=== PATIENT | female | born 1930 | race Caucasian/White ===

== ENCOUNTER 2016-11-05 15:54 | Inpatient (IN) | payer OTHER, MEDICARE ==
[~2016-11-05] VITALS: Ht 165.1 cm; Wt 75.8 kg
[2016-11-05] VITALS (13 sets, daily range): BP systolic 80–165; BP diastolic 56–75; PULSE 80–92; RESP 10–19; TEMP 98.3–98.6; O2SAT 95–100
[~2016-11-05 15:54] MED LIST: ASPI1TAB69 PO; LISI-360 PO; LISI10TA3 PO; OMEP20TA PO
[2016-11-05] MEDS ORDERED: PROPOFOL 1000 MG/100 ML INJ 100 ML ONE (16:11)
[2016-11-05] MEDS ORDERED: ETOMIDATE 20 MG/10 ML VIAL ONE (16:11)
[2016-11-05] MEDS ORDERED: SUCCINYLCHOLINE CHLORIDE 200 MG/10 ML VIAL ONE (16:11)
[2016-11-05] MEDS ORDERED: LIDOCAINE HCL 2% 100 MG/5 ML SYRINGE ONE (16:17)
[2016-11-05] MEDS ORDERED: LIDOCAINE HCL 2% 100 MG/5 ML SYRINGE IVP ONE (16:30)
[2016-11-05] MEDS ORDERED: SODIUM CHLOR 0.9% 1000 ML INJ 1,000 ML IV ONE (16:30)
[2016-11-05] MEDS ORDERED: SODIUM CHLORIDE 0.9% FLUSH 10 ML FLUSH IVF PRN (16:30)
[2016-11-05] MEDS ORDERED: ETOMIDATE 20 MG/10 ML VIAL IVP ONE (16:30)
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
[2016-11-05] MEDS ORDERED: PROPOFOL 1000 MG/100 ML INJ 100 ML IV SCH ×2 (16:45→19:30)
[2016-11-05 16:52] LABS: BASOPHIL % 0.4 % (0.0-2.0); EOSINOPHIL % 0.4 % (0.0-4.0); HEMATOCRIT 34.4 % (35.0-46.0); HEMO FLAGS DIFF FINAL; LYMPH % 10.3 % (9.0-44.0); LYMPHOCYTE # 1.1 TH/MM3 (1.0-4.8); MEAN CORPUSCULAR HEMOGLOBIN 30.8 PG (27.0-34.0); MEAN CORPUSCULAR HGB CONC 33.9 % (32.0-36.0); MONO % 6.7 % (0.0-8.0); NEUT % 82.2 % (16.0-70.0); PLATELET COUNT 372 TH/MM3 (150-450); RED BLOOD COUNT 3.78 MIL/MM3 (4.00-5.30); WHITE BLOOD COUNT 10.9 TH/MM3 (4.0-11.0)
[2016-11-05 16:59] LABS: BACTERIA, URINE MANY /hpf; BLOOD, URINE SMALL (NEG); COMMENT (UR) CATH-CULTURE IND; CULTURE IF INDICATED CATH CULTURE IND; GLUCOSE,URINE NEG (NEG); HYALINE CAST, URINE 2 /lpf (RARE); KETONE, URINE NEG (NEG); MUCUS URINE FEW /lpf (OCC); SQUAMOUS EPITHELIAL CELL URINE 2 /hpf (0-5); URINE COLOR LIGHT-YELLOW (YELLW/STRAW)
--- NOTE | 2016-11-05 16:59 | RADRPT ---
EXAM DATE/TIME: 11/05/2016 16:16 [facility] COMPARISON: CHEST SINGLE AP, February 18, 2016, 20:14. INDICATIONS : Post intubation. MEDICAL HISTORY : None. SURGICAL HISTORY : None. ENCOUNTER: Initial ACUITY: 1 day PAIN SCORE: 0/10 LOCATION: Bilateral chest FINDINGS: An endotracheal tube has its tip 2 cm above the doc. A nasogastric tube has its tip in the stomac h. The heart and mediastinal structures are normal. The pulmonary vascular pattern is normal. The lungs are clear. CONCLUSION: 1. No acute cardiopulmonary disease. 2. Endotracheal tube 2 cm above the doc. 3. Degenerative changes and scoliosis of the thoracolumbar spine. Madi Bui MD on November 05, 2016 at 16:43 Board Certified Radiologist. This report was verified electronically.
[2016-11-05 17:00] LABS: NITRITE,URINE POS (NEG)
[2016-11-05 17:02] LABS: APTT (PATIENT) 29.4 SEC (24.3-30.1); PROTHROMBIN TIME - PATIENT 11.1 SEC (9.8-11.6)
[2016-11-05 17:10] LABS: ANION GAP 10 MEQ/L (5-15); BICARBONATE 23.7 MEQ/L (21.0-32.0); BLOOD UREA NITROGEN 18 MG/DL (7-18); CHLORIDE 94 MEQ/L (98-107); GLOMERULAR FILTRATION RATE 81 ML/MIN (>89); POTASSIUM 4.6 MEQ/L (3.5-5.1); SODIUM (NA) 128 MEQ/L (136-145)
[2016-11-05 17:13] LABS: AMPHETAMINE, URINE NEG (NEG); BARBITURATES, URINE NEG (NEG); COCAINE, URINE NEG (NEG)
--- NOTE | 2016-11-05 17:18 | RADRPT ---
EXAM DATE/TIME: 11/05/2016 16:59 [facility] COMPARISON: CT BRAIN W/O CONTRAST, February 18, 2016, 21:05. INDICATIONS : Altered mental status. RADIATION DOSE: 34.41 CTDIvol (mGy) MEDICAL HISTORY : Cardiovascular disease. Hypertension. Gastroesophageal reflux disease. SURGICAL HISTORY : None. ENCOUNTER: Initial ACUITY: 1 day PAIN SCALE: Non-responsive LOCATION: cranial TECHNIQUE: Multiple contiguous axial images were obtained of the head. Using automated exposure control and adj ustment of the mA and/or kV according to patient size, radiation dose was kept as low as reasonably a chievable to obtain optimal diagnostic quality images. DICOM format image data is available electro nically for review and comparison. FINDINGS: The study is abnormal demonstrating a large hematoma occupying most of the left supratentorial brain, measuring in excess of 10.5 cm in AP dimension and causing greater than 2 cm midline shift towards t he right. There is surrounding hypodensity about the hematoma sparing a the temporal lobes and lobe convexity parietal-occipital region. Possible subarachnoid hemorrhage in the high convexity. There is loss of delineation of the perimesencephalic cisterns. The aqueduct of Sylvius and the calcified pineal appears deviated towards the right. CSF is still seen in the supracerebellar cistern. No focal abnormality seen in the right cerebral hemisphere. No intraventricular blood. The posterio r fossa structures are grossly intact. Wide windows for bony detail demonstrates calvarium to be int act. CONCLUSION: Large, greater than 10 cm, hemorrhage involving left frontal, parietal, and occipital lobes causing g reater than 2 cm midline shift towards the right and some mass effect in the mesencephalon, but no ov ert transtentorial herniation. The findings were called to Dr. Lobo. Mike Iqbal MD on November 05, 2016 at 17:09 Board Certified Radiologist. This report was verified electronically.
[2016-11-05 17:24] LABS: BLOOD GAS BASE EXCESS -4.1 mmol/L (-2-2); BLOOD GAS CARBOXYHEMOGLOBIN 0.7 % (0-4); BLOOD GAS HCO3 20 mmol/L (22-26); BLOOD GAS METHEMOGLOBIN 0.9 % (0-2); BLOOD GAS O2 HGB SATURATION 98 % (90-100); BLOOD GAS OXYGEN CONTENT 15.2 Vol % (12.0-20.0); BLOOD GAS PCO2 36 mmHg (38-42); BLOOD GAS PO2 273 mmHG (61-120); BLOOD GAS TOTAL HGB 10.6 G/DL (12.0-16.0); CRITICAL VALUE NO; DRAW SITE LT RADIAL; FIO2 50 %; NUMBER OF ARTERIAL PUNCTURES 1; OXYGEN DEVICE VENTILATOR; TEMP CORR TO 98.6; VENT SETTINGS AC14/500/5PEEP
[2016-11-05 17:25] LABS: STAT YES; ULNAR PULSE Y
--- NOTE | 2016-11-05 17:55 | MB ---
cc: SINDY CHOI M.D. DATE OF CONSULTATION: 11/05/2016. REQUESTING PHYSICIAN: Dr. Cabello. HISTORY OF PRESENT ILLNESS: This is an 86-year-old woman who was found unresponsive at her home, last being seen in her normal state of health eight hours previously. The patient was brought to [facility] and intubated here without the need of sedation or paralysis. CT scan of the brain performed emergently shows a massive left hemisphere intracerebral hemorrhage measuring over 10 cm in greatest length causing over 2 cm of [id number] midline shift. According to history from the family, the patient is not on any anticoagulation. PAST MEDICAL HISTORY: 1. Arthritis. 2. Gastroesophageal reflux disease (GERD). 3. Hypertension. 4. Hiatal hernia. CURRENT HOME MEDICATIONS: 1. Omeprazole. 2. Lisinopril. 3. Baby aspirin. ALLERGIES: SHE IS NOT ALLERGIC TO ANY MEDICATIONS. SOCIAL HISTORY: No alcohol use. No tobacco use. REVIEW OF SYSTEMS: A review of systems is unobtainable as the patient is unresponsive. PHYSICAL EXAMINATION: GENERAL: A well-developed, well-nourished elderly female who is intubated but not on any sedation. HEAD: Her head is atraumatic and normocephalic. Pupils are 2 to 3 mm nonreactive, midline gaze. NEUROLOGICAL EXAMINATION: The patient responds with posturing in the upper extremities to painful stimulation. Triple flexion in the lower extremities. She has negative corneal and dolls sign. She does have positive cough reflex to endotracheal suctioning. ASSESSMENT: Massive left hemisphere intracerebral hemorrhage with 2 cm [id number] midline shift. Elsy Coma Score is 3. Prognosis for useful recovery is essentially zero. RECOMMENDATIONS: Spoke with the patient's family members regarding the dire prognosis and have recommended no aggressive or heroic measures in this case. They understand the reasoning and are in agreement with comfort measures only. The patient will be admitted to the intensive care unit for comfort measures and if and when family requests, life support may be discontinued. MD LOW Breaux/LETI /5:37 PM /5:44 PM
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
[2016-11-05] MEDS ORDERED: RESP: ALBUTEROL 2.5 MG/IPRATROPIUM 0.5 MG NEB (PRN) INH (19:30)
[2016-11-05] MEDS ORDERED: MORPHINE SULFATE 4 MG/ML INJ IV PRN (19:30)
[2016-11-05] MEDS ORDERED: SODIUM CHLORIDE 0.9% FLUSH 10 ML FLUSH PRN (19:30)
[2016-11-05] MEDS ORDERED: MISCELLANEOUS NURSING INFORMATION XX SCH (19:30)
[2016-11-05] MEDS ORDERED: LORazepam 2 MG/ML VIAL IV PRN (19:30)
[2016-11-05] MEDS ORDERED: CHLORHEXIDINE GLUCONATE 2 % 1 PACK (2 CLOTHS) TOP PRN (19:30)
[2016-11-05] MEDS: SODIUM CHLORIDE 0.9% FLUSH 10 ML FLUSH SCH (20:39)
[2016-11-05] MEDS: SODIUM CHLOR 0.9% 1000 ML INJ 1,000 ML IV SCH (20:39)
[2016-11-05] MEDS ORDERED: hydrALAZINE HCL 20 MG/ML VIAL IV PUSH PRN (20:45)
[2016-11-05] MEDS ORDERED: NOREPINEPHRINE-DEXTROSE DRIP 250 ML IV ONE (21:12)
[2016-11-05] MEDS ORDERED: TERBUTALINE INJ 1 MG/ML AMP SQ PRN (21:30)
[2016-11-05] MEDS ORDERED: NOREPINEPHRINE-DEXTROSE DRIP 250 ML IV SCH (21:30)
--- NOTE | 2016-11-05 21:57 | RADRPT ---
EXAM DATE/TIME: 11/05/2016 21:43 [facility] COMPARISON: CHEST SINGLE AP, November 05, 2016, 16:16. INDICATIONS : Evaluate central line placement MEDICAL HISTORY : None. SURGICAL HISTORY : None. ENCOUNTER: Subsequent ACUITY: 1 day PAIN SCORE: Non-responsive. LOCATION: chest FINDINGS: Interval placement of right subclavian catheter with tip projecting at the cavoatrial junction. No e vidence of pneumothorax. Endotracheal tube tip is 2.3 cm above the doc. Gastric tube tip project s within the stomach. The lungs are symmetrically aerated. The heart is normal size. Both hemidiap hragms are well delineated. CONCLUSION: Right subclavian catheter in good position. No evidence of pneumothorax. Mike Iqbal MD on November 05, 2016 at 21:55 Board Certified Radiologist. This report was verified electronically.
[2016-11-05] MEDS: PANTOPRAZOLE SODIUM 40 MG VIAL IV PUSH SCH (22:05)
[2016-11-05] MEDS ORDERED: NOREPINEPHRINE INJ 4 MG in SODIUM CHLOR 0.9% 250 ML INJ 250 ML IV SCH (22:15)
--- NOTE | 2016-11-05 23:02 | PD.PROCEDR ---
Procedure Note Procedure Centerline placement A time-out was completed verifying correct patient, procedure, site, positioning , and special equipment if applicable. The patient was placed in a dependent position appropriate for central line placement based on the vein to be cannulated. The patients right shoulder was prepped and draped in sterile fashion. 1% Lidocaine was used to anesthetize the surrounding skin area. A triple lumen 9-Dutch Cordis catheter was introduced into the the right subclavian vein using the Seldinger technique. The catheter was threaded smoothly over the guide wire and appropriate blood return was obtained. Each lumen of the catheter was evacuated of air and flushed with sterile saline. The catheter was then sutured in place to the skin and a sterile dressing applied. Perfusion to the extremity distal to the point of catheter insertion was checked and found to be adequate. Estimated Blood Loss: 1ml The patient tolerated the procedure well and there were no complications. Sage Hernandez MD Nov 05, 2016 23:01
[2016-11-06] VITALS (18 sets, daily range): BP systolic 121–141; BP diastolic 64–74; PULSE 100–118; RESP 17–26; TEMP 98.7–100; O2SAT 97–100
[2016-11-06] MEDS: CHLORHEXIDINE GLUCONATE 2 % 1 PACK (2 CLOTHS) TOP SCH (04:00)
[2016-11-06] MEDS: SODIUM CHLOR 0.9% 1000 ML INJ 1,000 ML IV SCH ×2 (06:50→20:44)
[2016-11-06] MEDS: SODIUM CHLORIDE 0.9% FLUSH 10 ML FLUSH SCH ×2 (09:00→20:42)
--- NOTE | 2016-11-06 09:55 | PD.CONS ---
Consult Service Palliative Care . Consult Requested By Dr. Hernandez . Primary Care Physician Unknown . Reason for Consultation a. To assist with evaluation and management of symptoms including: Pain, encephalopathy, debility b. To assist medical decision maker(s) with: better understanding of current medical conditions; weighing benefits/burdens of medical treatment options; making medical treatment decisions. . HPI History of Present Illness Ms. Willett is an86 year old female with a past medical history that includes osteoarthritis, GERD, hypertension, hyperlipidemia. She was brought to [facility] ED on 11/05/2016 for evaluation after she was found unresponsive by her son. The patient had last been seen at her baseline 8 hours earlier before her son went to work. Patient arrived to the ED critically ill, actively vomiting and unable to protect her airway. She was intubated in the ED without the need for sedation are paralysis. Patient's family reported the patient is on no anticoagulation. CT of the head showed a massive left-sided frontoparietal hemorrhage greater than 10 cm. She also has 2 cm of [id number] midline shift and some subfalcine herniation. Patient is critically ill with a devastating neurological injury. Neurosurgery spoke with the patient's family and recommendations were made to consider transitioning to comfort focused care. Dr. Hernandez, critical care, agrees. Palliative Care was consulted to assist with symptom management and to discuss with the family the benefits and burdens of her current illnesses and the options regarding future care. . Function/Cognitive Trajectory Patient lived with her son, Joseph. He states she was relatively independent prior to this event, but he had noted a recent decline in his mother's functional status describing her as "fragile". Patient's children states she was independent enough last year to make Thanksgiving dinner for her children. . Review of Systems ROS Limitations: Clinical Condition (Patient is unable to provided ROS, information obtained from family report and review off medical notes.) Constitutional: COMPLAINS OF: Fatigue, Generalized weakness Cardiovascular: DENIES: Chest pain Gastrointestinal: COMPLAINS OF: Diarrhea (while in the ED, now resolved), Nausea Musculoskeletal: COMPLAINS OF: Joint pain Hematologic/Lymphatics: COMPLAINS OF: Bruising Neurologic: COMPLAINS OF: Poor Balance Psychiatric: DENIES: Depression Past Family Social History Coded Allergies: No Known Allergies (Verified , 11/05/16) Past Medical History Arthritis GERD Hypertension Hyperlipidemia . Past Surgical History Left hip surgery in 2015 Cataracts Left acetabular repair Partial colectomy . Reported Medications Omeprazole 20 Mg Tab 20 Mg PO DAILY Lisinopril 10 Mg Tab 10 Mg PO DAILY Aspirin 81 Mg Tabdr 81 Mg PO DAILY Lisinopril 10 mg (Lisinopril) 10 Mg Tab 1 Tab PO DAILY . Current Medications Medications (Trade) Dose Ordered Sig/Dena Route Start Time Stop Time Status Last Admin (NS 1000 ml Inj) 1,000 ml @ 84 mls/hr [id number] IV 11/05/16 19:23 11/06/16 06:50 (NS Flush) 2 ml UNSCH PRN .XX 11/05/16 19:30 11/05/16 22:05 (NS Flush) 2 ml BID .XX 11/05/16 21:00 11/06/16 09:00 (Morphine Inj) 2 mg Q2H PRN IV 11/05/16 19:30 (Ativan Inj) 1 mg Q1H PRN IV 11/05/16 19:30 Miscellaneous Information 1 [id number] XX 11/05/16 19:30 11/05/16 19:30 (Chlorhexidine 2% Cloth) 3 pack Taper DAILY@04 TOP 11/06/16 04:00 11/02/17 03:59 11/06/16 04:00 Chlorhexidine Gluconate 3 pack 3 pack UNSCH PRN TOP 11/05/16 19:30 (Diprivan 1000 Mg/100ml Inj) 100 ml @ 0 mls/hr TITRATE IV 11/05/16 19:30 11/05/16 20:40 (Protonix Inj) 40 mg Q24H IV PUSH 11/05/16 21:00 11/05/16 22:05 (Apresoline Inj) 20 mg Q4H PRN IV PUSH 11/05/16 20:45 11/06/16 01:09 Terbutaline Sulfate 1 mg 1 mg UNSCH PRN SQ 11/05/16 21:30 (Levophed Inj/NS 250 ml Inj) 254 ml @ 0 mls/hr TITRATE IV 11/05/16 22:15 . Family History Patient is originally from [place]. Patient's 20+ years ago per family report. The patient has 3 adult children ( 2 sons and 1 daughter) who live locally. She currently lives with 1 son in [place]. 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 . Substance Use Tobacco: Alcohol: Prescription med abuse: Illicits: Psychosocial History Psychosocial: Patient is originally from [place]. Patient's 20+ years ago per family report. The patient has 3 adult children ( 2 sons and 1 daughter) who live locally. She currently lives with 1 son in [place]. 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 . Spiritual/Cultural Factors Spiritism jennifer . . Living Will: Never completed Health Care Surrogate: Never completed Durable Power of Project Planner: Never completed Documented care wishes: No documented care wishes were completed per report . Today's verbally stated goals: Patient is unresponsive, unable to participate in establishing medical treatment goals. . Family/friends goals: Patient's family is in agreement and requesting comfort focused care. Likely withdraw from artificial life support tomorrow 11/07/16 at 10 AM. . Ethical and Legal Issues No known ethical or legal issues at this time. . Physical Exam Vital Signs Date Time Temp Pulse Resp B/P Pulse Ox O2 Delivery O2 Flow Rate FiO2 11/06/16 08:13 100 40 11/06/16 08:00 100.0 118 19 136/69 100 11/06/16 08:00 118 11/06/16 08:00 40 11/06/16 07:00 94 Mechanical Ventilator 40 11/06/16 06:00 100 11/06/16 04:00 60 11/06/16 04:00 98.7 116 24 139/74 100 11/06/16 04:00 116 11/06/16 03:48 100 50 11/06/16 02:00 108 11/06/16 01:00 50 11/06/16 00:20 100 60 11/06/16 00:00 60 11/06/16 00:00 104 11/06/16 00:00 98.7 104 17 121/68 100 11/05/16 22:00 90 11/05/16 21:30 96 60 11/05/16 20:15 98.6 80 14 80/56 100 11/05/16 20:15 80 11/05/16 20:15 100 Mechanical Ventilator 60 11/05/16 20:00 60 11/05/16 19:51 100 60 11/05/16 19:44 83 18 131/63 100 Room Air 11/05/16 18:11 83 14 111/56 100 Ventilator 60 11/05/16 17:20 92 19 124/60 100 Ventilator 60 11/05/16 17:14 100 11/05/16 17:02 92 14 165/74 100 Ventilator 60 11/05/16 16:49 84 16 128/63 100 Ventilator 60 11/05/16 16:43 96 Ventilator 60 11/05/16 16:42 98.3 87 13 136/75 96 Ventilator 60 11/05/16 16:20 60 11/05/16 16:20 95 60 11/05/16 16:10 10 Nasal Cannula 2.0 11/05/16 16:01 90 10 128/65 100 . 11/05/16 11/06/16 19:00 07:00 Intake Total 960 ml Output Total 400 ml 1000 ml Balance -400 ml -40 ml Intake IV Total 772 ml TPN/PPN 178 ml Other 10 ml Output Urine Total 400 ml 950 ml Stool Total 0 ml Gastric Drainage Total 50 ml # Voids 0 # Bowel Movements 0 . Exam CONSTITUTIONAL/GENERAL: This is an elderly female patient, orally intubated and mechanically ventilated. TUBES/LINES/DRAINS: PIV x2, CVL, ETT, OG SKIN: Ecchymoses on upper extremities. Skin temperature appropriate. Not diaphoretic. HEAD: Atraumatic. Normocephalic. EYES: Pupils unequal. No scleral icterus. No injection or drainage. Fundi not examined. ENT: Unable to assess hearing secondary to clinical condition. Nose without bleeding or purulent drainage. NECK: Trachea midline. CARDIOVASCULAR: Regular rate and rhythm without murmurs, gallops, or rubs. No JVD. Peripheral pulses symmetric. RESPIRATORY/CHEST: Symmetric, unlabored respirations. Clear to auscultation. Breath sounds equal bilaterally. No wheezes, rales, or rhonchi. GASTROINTESTINAL: Abdomen soft, nondistended. Bowel sounds hypoactive. GENITOURINARY: Without palpable bladder distension. Em catheter in place. MUSCULOSKELETAL: Extremities without clubbing, cyanosis, or edema. No mottling or clubbing. NEUROLOGICAL: Withdraws to noxious stimuli centrally and on all extremities. Withdraw is weaker in the RUE compared to LUE. Unresponsive to all other stimuli. PSYCHIATRIC: Unable to assess secondary to clinical condition. . Diagnostic Tests Laboratory Laboratory Tests Test 11/05/16 11/05/16 16:10 17:20 White Blood Count 10.9 TH/MM3 (4.0-11.0) Red Blood Count 3.78 MIL/MM3 (4.00-5.30) Hemoglobin 11.7 GM/DL (11.6-15.3) Hematocrit 34.4 % (35.0-46.0) Mean Corpuscular Volume 91.0 FL (80.0-100.0) Mean Corpuscular Hemoglobin 30.8 PG (27.0-34.0) Mean Corpuscular Hemoglobin 33.9 % Concent (32.0-36.0) Red Cell Distribution Width 14.0 % (11.6-17.2) Platelet Count 372 TH/MM3 (150-450) Mean Platelet Volume 6.5 FL (7.0-11.0) Neutrophils (%) (Auto) 82.2 % (16.0-70.0) Lymphocytes (%) (Auto) 10.3 % (9.0-44.0) Monocytes (%) (Auto) 6.7 % (0.0-8.0) Eosinophils (%) (Auto) 0.4 % (0.0-4.0) Basophils (%) (Auto) 0.4 % (0.0-2.0) Neutrophils # (Auto) 9.0 TH/MM3 (1.8-7.7) Lymphocytes # (Auto) 1.1 TH/MM3 (1.0-4.8) Monocytes # (Auto) 0.7 TH/MM3 (0-0.9) Eosinophils # (Auto) 0.0 TH/MM3 (0-0.4) Basophils # (Auto) 0.0 TH/MM3 (0-0.2) CBC Comment DIFF FINAL Differential Comment Prothrombin Time 11.1 SEC (9.8-11.6) Prothromb Time International 1.0 RATIO Ratio Activated Partial 29.4 SEC Thromboplast Time (24.3-30.1) Urine Color LIGHT-YELLOW (YELLW/STRAW) Urine Turbidity HAZY (CLEAR) Urine pH 6.0 (5.0-8.5) Urine Specific [place] 1.010 (1.002-1.035) Urine Protein TRACE mg/dL (NEG-TRACE) Urine Glucose (UA) NEG mg/dL (NEG) Urine Ketones NEG mg/dL (NEG) Urine Occult Blood SMALL (NEG) Urine Nitrite POS (NEG) Urine Bilirubin NEG (NEG) Urine Urobilinogen LESS THAN 2.0 MG/DL (LESS THAN 2.0) Urine Leukocyte Esterase LARGE (NEG) Urine RBC 6 /hpf (0-3) Urine WBC 181 /hpf (0-5) Urine WBC Clumps MANY (NONE) Urine Squamous Epithelial 2 /hpf (0-5) Cells Urine Bacteria MANY /hpf (NONE) Urine Hyaline Casts 2 /lpf (RARE) Urine Mucus FEW /lpf (OCC) Microscopic Urinalysis Comment CATH-CULTURE IND Sodium Level 128 MEQ/L (136-145) Potassium Level 4.6 MEQ/L (3.5-5.1) Chloride Level 94 MEQ/L (98-107) Carbon Dioxide Level 23.7 MEQ/L (21.0-32.0) Anion Gap 10 MEQ/L (5-15) Blood Urea Nitrogen 18 MG/DL (7-18) Creatinine 0.69 MG/DL (0.50-1.00) Estimat Glomerular Filtration 81 ML/MIN (>89) Rate Random Glucose 163 MG/DL (74-106) Calcium Level 8.7 MG/DL (8.5-10.1) Urine Opiates Screen NEG (NEG) Urine Barbiturates Screen NEG (NEG) Urine Amphetamines Screen NEG (NEG) Urine Benzodiazepines Screen NEG (NEG) Urine Cocaine Screen NEG (NEG) Urine Cannabinoids Screen NEG (NEG) Ethyl Alcohol Level LESS THAN 3 MG/DL (0-5) Blood Gas Puncture Site LT RADIAL Blood Gas Patient Temperature 98.6 Blood Gas HCO3 20 mmol/L (22-26) Blood Gas Base Excess -4.1 mmol/L (-2-2) Blood Gas Oxygen Saturation 98 % (90-100) Arterial Blood pH 7.37 (7.380-7.420) Arterial Blood Partial 36 mmHg (38-42) Pressure CO2 Arterial Blood Partial 273 mmHG Pressure O2 (61-120) Arterial Blood Oxygen Content 15.2 Vol % (12.0-20.0) Arterial Blood 0.7 % (0-4) Carboxyhemoglobin Arterial Blood Methemoglobin 0.9 % (0-2) Blood Gas Hemoglobin 10.6 G/DL (12.0-16.0) Oxygen Delivery Device VENTILATOR Blood Gas Ventilator Setting AC14/500/5PEEP Blood Gas Inspired Oxygen 50 % . Result Diagram: 11/05/16 1610 11/05/16 1610 Microbiology Microbiology Date/Time Procedure Status Source Growth 11/05/16 16:10 Urine Culture Received Urine Catheterized Urine Pending . Imaging Last [address] 11/05/16 0000 Signed Impressions: Service Date/Time: Saturday, November 05, 2016 16:59 - CONCLUSION: Large, greater than 10 cm, hemorrhage involving left frontal, parietal, and occipital lobes causing greater than 2 cm midline shift towards the right and some mass effect in the mesencephalon, but no overt transtentorial herniation. The findings were called to Dr. Lobo. Mike Iqbal MD Chest X-Ray 11/05/16 0000 Signed Impressions: Service Date/Time: Saturday, November 05, 2016 21:43 - CONCLUSION: Right subclavian catheter in good position. No evidence of pneumothorax. Mike Iqbal MD Chest X-Ray 11/05/16 0000 Signed Impressions: Service Date/Time: Saturday, November 05, 2016 16:16 - CONCLUSION: 1. No acute cardiopulmonary disease. 2. Endotracheal tube 2 cm above the doc. 3. Degenerative changes and scoliosis of the thoracolumbar spine. Madi Bui MD . Procedures 11/05/2016: Intubation 11/05/2016: Right subclavian CVL 11/05/2016: OGT . Patient/Family Conference Present at Family Conference: Met with patient's 2 sons at bedside; later met with 3 children and large extensive family in family conference room. . Family Conference Location: Bedside, Consult Room Issues Discussed: * Palliative care role, purpose, approach * Additional medical, psychosocial, and spiritual history * Patients general health, functional status, and cognitive changes in the months leading up to the current hospitalization * Patient/family understanding of the current medical problems * Patient/family understanding of prognosis * Patients goals of care as best understood from advance directives and/or conversations and/or values * Current medical treatment options and benefits/burdens of those options * Likely scenarios comparing ongoing aggressive care with a transition to comfort measures only * Questions answered to the best of my ability * Palliative care contact information provided . Assessment and Plan Disease Oriented Problem List: (1) Intracranial hemorrhage (2) Required emergent intubation (3) Unresponsive state (4) HTN (hypertension) (5) GERD (gastroesophageal reflux disease) (6) Hyperlipidemia Symptom Scale: (1) Debility, unspecified (2) Pain (3) Encephalopathy Pertinent Non-Medical Issues Psychosocial: Patient is originally from [place]. Patient's 20+ years ago per family report. The patient has 3 adult children ( 2 sons and 1 daughter) who live locally. She currently lives with 1 son in [place]. 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 Spiritual: Spiritism jennifer Legal: Per [place] statutes, in the absence of written advanced directives healthcare proxy decision-making falls to the patient's 3 adult children. Ethical issues impacting care: No known ethical issues impacting care. Important Contacts Joseph Willett, son: Brian Willett, son: [phone] Francheska Rg, daughter: [phone] . Prognosis Mr. Willett is an 86 yo female who was brought to [facility] after being unresponsive by her son. CT scan of the brain performed emergently shows a catastrophic left hemisphere intracerebral hemorrhage measuring over 10 cm in greatest length and over 2 cm of [id number] midline shift. Patient currently remains intubated without the need for station or paralysis status post devastating neurological injury. Prognosis poor. . Code Status: No Code Plan * NO CODE * Per [place] statutes, in the absence of written advanced directives healthcare proxy decision-making falls to the patient's 3 adult children. * Goals: Comfort focused goals * FAMILY PLANS TO WITHDRAWAL ARTIFICIAL LIFE SUPPORT TOMORROW 11/06/2016 * Shipping Order Clerk consult placed * CT of the head showed a massive left-sided frontoparietal hemorrhage greater than 10 cm. She also has 2 cm of [id number] midline shift and some subfalcine herniation. * Patient is critically ill with a devastating neurological injury. Neurosurgery spoke with the patient's family and recommendations were made to consider transitioning to comfort focused care; medical team is in agreement. * Palliative care met with patient's 3 adult children and multiple extended family members; palliative care contact information was provided to the patient' s family. * Palliative care will continue to follow this patient throughout her hospitalization to establish trust, assist with symptom management and clarification of medical treatment goals. . Thank you for the opportunity to participate in the care of Ms. Willett. . Attestation To help prompt me to consider important information that might be impacting today's encounter and assessment, information from prior notes written by myself or my colleagues may have been "brought forward" into today's note. My signature on this note, however, is an attestation that I personally performed the exam, history, and/or decision-making noted today, and, unless otherwise indicated, the interactions with patient, family, and staff as well as the review of records all occurred today. I also attest that the listed assessment and stated plan reflect my best clinical judgment today based on the combination of historical information, prior notes, and today's exam/ interactions. When time spent is documented, it refers only to time spent today by the signer, or if indicated, combined time spent today by collaborating physician/nurse practitioner. . Norma Liu Nov 06, 2016 09:55
--- NOTE | 2016-11-06 10:30 | HHI.CCPN ---
Subjective Remarks/Hospital Course 86-year-old unfortunate female was found unresponsive at her home, last being seen in her normal state of health eight hours previously. She was brought to [facility] and intubated here without the need of sedation or paralysis. CT scan of the brain performed emergently shows a catastrophic left hemisphere intracerebral hemorrhage measuring over 10 cm in greatest length and over 2 cm of [id number] midline shift. 11/06: Continued neurological deterioration after large intracranial bleed. Now ventilator dependent, withdraws only, otherwise unresponsive. Objective Vital Signs Date Time Temp Pulse Resp B/P Pulse Ox O2 Delivery O2 Flow Rate FiO2 11/06/16 10:00 117 11/06/16 08:13 100 40 11/06/16 08:00 100.0 19 136/69 11/06/16 07:00 Mechanical Ventilator 11/05/16 16:10 2.0 Intake and Output 11/05/16 11/05/16 11/06/16 08:00 16:00 00:00 Intake Total 178 ml Output Total 660 ml Balance -482 ml Result Diagram: 11/05/16 1610 11/05/16 1610 Other Results Laboratory Tests Test 11/05/16 17:20 Blood Gas Puncture Site LT RADIAL Blood Gas Patient Temperature 98.6 Blood Gas HCO3 20 mmol/L (22-26) Blood Gas Base Excess -4.1 mmol/L (-2-2) Blood Gas Oxygen Saturation 98 % (90-100) Arterial Blood pH 7.37 (7.380-7.420) Arterial Blood Partial 36 mmHg (38-42) Pressure CO2 Arterial Blood Partial 273 mmHG Pressure O2 (61-120) Arterial Blood Oxygen Content 15.2 Vol % (12.0-20.0) Arterial Blood 0.7 % (0-4) Carboxyhemoglobin Arterial Blood Methemoglobin 0.9 % (0-2) Blood Gas Hemoglobin 10.6 G/DL (12.0-16.0) Oxygen Delivery Device VENTILATOR Blood Gas Ventilator Setting AC14/500/5PEEP Blood Gas Inspired Oxygen 50 % Imaging Last [address] 11/05/16 0000 Signed Impressions: Service Date/Time: Saturday, November 05, 2016 16:59 - CONCLUSION: Large, greater than 10 cm, hemorrhage involving left frontal, parietal, and occipital lobes causing greater than 2 cm midline shift towards the right and some mass effect in the mesencephalon, but no overt transtentorial herniation. The findings were called to Dr. Lobo. Mike Iqbal MD Chest X-Ray 11/05/16 0000 Signed Impressions: Service Date/Time: Saturday, November 05, 2016 16:16 - CONCLUSION: 1. No acute cardiopulmonary disease. 2. Endotracheal tube 2 cm above the doc. 3. Degenerative changes and scoliosis of the thoracolumbar spine. Madi Bui MD Objective Remarks GENERAL: Elderly woman, unresponsive. SKIN: Warm and dry. HEAD: Normocephalic. EYES: No scleral icterus. No injection or drainage. Right pupil 3-4 mm fixed left pupil 1 mm NECK: Supple, trachea midline. Orally intubated. CARDIOVASCULAR: Regular rate and rhythm without murmurs, gallops, or rubs. No JVD. RESPIRATORY: Breath sounds equal bilaterally. No wheezes. GASTROINTESTINAL: Abdomen soft, non-tender, nondistended. Quiet. MUSCULOSKELETAL: No cyanosis, or edema. Well perfused. BACK: Nontender without obvious deformity. No CVA tenderness. EXTREMITIES: Well perfused. NEURO: Right pupil enlarged. Withdraws left foot to pain only. Otherwise unresponsive. A/P Assessment and Plan Respiratory failure - Intubated for an airway protection - No weaning - Awaiting family decision to transition to comfort care only Hypertension - When necessary meds to keep SBP less than 150 Large intraparenchymal left hemispheric cerebral bleed - Non-salvageable brain damage - Transition to comfort care only - Awaiting family decisions GERD - Pantoprazole DVT GI prophylaxis - Teds SCDs - No pharmacological DVT prophylaxis due to large ICH - Protonix Overall impression: Critically ill woman with acute intracranial bleed and devastating neurological injury. Unable to wean from the ventilator. Prognosis poor. Ck Dunaway MD Nov 06, 2016 10:30
[2016-11-06] MEDS: PANTOPRAZOLE SODIUM 40 MG VIAL IV PUSH SCH (20:42)
[2016-11-07] VITALS (11 sets, daily range): BP systolic 80–133; BP diastolic 50–86; PULSE 98–150; RESP 9–19; TEMP 97.8–100.8; O2SAT 94–100
[2016-11-07] MEDS: CHLORHEXIDINE GLUCONATE 2 % 1 PACK (2 CLOTHS) TOP SCH (04:00)
[2016-11-07] MEDS: SODIUM CHLOR 0.9% 1000 ML INJ 1,000 ML IV SCH (07:08)
[2016-11-07] MEDS: SODIUM CHLORIDE 0.9% FLUSH 10 ML FLUSH SCH (09:00)
--- NOTE | 2016-11-07 09:02 | HHI.CCPN ---
Subjective Remarks/Hospital Course 86-year-old unfortunate female was found unresponsive at her home, last being seen in her normal state of health eight hours previously. She was brought to [facility] and intubated here without the need of sedation or paralysis. CT scan of the brain performed emergently shows a catastrophic left hemisphere intracerebral hemorrhage measuring over 10 cm in greatest length and over 2 cm of [id number] midline shift. 11/06: Continued neurological deterioration after large intracranial bleed. Now ventilator dependent, withdraws only, otherwise unresponsive. 11/07: Plan for withdrawal of artificial support today. Agree. Neurological injury is devastating, not survivable. Objective Vital Signs Date Time Temp Pulse Resp B/P Pulse Ox O2 Delivery O2 Flow Rate FiO2 11/07/16 08:00 40 11/07/16 08:00 98.7 105 17 118/59 100 11/07/16 07:00 Mechanical Ventilator 11/05/16 16:10 2.0 Intake and Output 11/06/16 11/06/16 11/06/16 07:59 15:59 23:59 Intake Total 782 ml 606 ml 788 ml Output Total 740 ml 625 ml 400 ml Balance 42 ml -19 ml 388 ml Result Diagram: 11/05/16 1610 11/05/16 1610 Other Results Microbiology Date/Time Procedure Status Source Growth 11/05/16 16:10 Urine Culture - Final Complete Urine Catheterized Urine Klebsiella Pneumoniae Imaging Last [address] 11/05/16 0000 Signed Impressions: Service Date/Time: Saturday, November 05, 2016 16:59 - CONCLUSION: Large, greater than 10 cm, hemorrhage involving left frontal, parietal, and occipital lobes causing greater than 2 cm midline shift towards the right and some mass effect in the mesencephalon, but no overt transtentorial herniation. The findings were called to Dr. Lobo. Mike Iqbal MD Chest X-Ray 11/05/16 0000 Signed Impressions: Service Date/Time: Saturday, November 05, 2016 16:16 - CONCLUSION: 1. No acute cardiopulmonary disease. 2. Endotracheal tube 2 cm above the doc. 3. Degenerative changes and scoliosis of the thoracolumbar spine. Madi Bui MD Objective Remarks GENERAL: Elderly woman, unresponsive. SKIN: Warm and dry. HEAD: Normocephalic. EYES: No scleral icterus. No injection or drainage. Right pupil 3-4 mm fixed left pupil 1 mm NECK: Supple, trachea midline. Orally intubated. CARDIOVASCULAR: Regular rate and rhythm without murmurs, gallops, or rubs. No JVD. RESPIRATORY: Breath sounds equal bilaterally. No wheezes. GASTROINTESTINAL: Abdomen soft, non-tender, nondistended. Quiet. MUSCULOSKELETAL: No cyanosis, or edema. Well perfused. BACK: Nontender without obvious deformity. No CVA tenderness. EXTREMITIES: Well perfused. NEURO: Right pupil enlarged. Withdraws left foot to pain only. Otherwise unresponsive. Breathes over vent. A/P Assessment and Plan Respiratory failure - Intubated for an airway protection - No weaning - Awaiting family decision to transition to comfort care only Hypertension - When necessary meds to keep SBP less than 150 Large intraparenchymal left hemispheric cerebral bleed - Non-salvageable brain damage - Transition to comfort care only - Awaiting family decisions GERD - Pantoprazole DVT GI prophylaxis - Teds SCDs - No pharmacological DVT prophylaxis due to large ICH - Protonix Overall impression: Critically ill woman with large acute intracranial bleed and devastating neurological injury. Unable to wean from the ventilator. Prognosis poor. No chance for meaningful survival. Ck Dunaway MD Nov 07, 2016 09:02
[2016-11-07] MEDS ORDERED: HYOSCYAMINE 0.5 MG/ML AMP IV ONE (10:45)
[2016-11-07] MEDS ORDERED: MORPHINE SULFATE 8 MG/ML INJ IV PUSH ONE (10:45)
[2016-11-07] MEDS ORDERED: LORazepam 2 MG/ML VIAL IV ONE ×2 (10:45→11:00)
[2016-11-07] MEDS ORDERED: MORPHINE SULFATE 4 MG/ML INJ IV ONE (11:00)
[2016-11-07] MEDS ORDERED: LORazepam 2 MG/ML VIAL IVS PRN (11:15)
[2016-11-07] MEDS ORDERED: BISACODYL 10 MG SUPP RECTAL PRN (11:15)
[2016-11-07] MEDS ORDERED: FUROSEMIDE 20 MG/2 ML VIAL IV PRN (11:15)
[2016-11-07] MEDS ORDERED: HYOSCYAMINE 0.5 MG/ML AMP IV PRN (11:15)
[2016-11-07] MEDS ORDERED: MORPHINE SULFATE 4 MG/ML INJ IV PRN (11:15)
[2016-11-07] MEDS ORDERED: ACETAMINOPHEN 650 MG SUPP RECTAL PRN (11:15)
[2016-11-07] MEDS ORDERED: MORPHINE SULFATE 8 MG/ML INJ IV PUSH PRN (11:15)
[2016-11-07] MEDS ORDERED: LORazepam 2 MG/ML VIAL IV PRN ×2 (11:15)
--- NOTE | 2016-11-07 11:53 | HHI.HCPN ---
Reason for visit a. To assist with evaluation and management of symptoms including: Pain, secretions, dyspnea, anxiety b. To assist medical decision maker(s) with: better understanding of current medical conditions; weighing benefits/burdens of medical treatment options; making medical treatment decisions. . Subjective/Interval History Ms. Willett is an 86 year old female with a past medical history that includes osteoarthritis, GERD, hypertension, hyperlipidemia. She was brought to [facility] ED on 11/05/2016 for evaluation after she was found unresponsive by her son. CT of the head showed a massive left-sided frontoparietal hemorrhage greater than 10 cm. She also has 2 cm of [id number] midline shift and some subfalcine herniation. Patient is critically ill with a devastating neurological injury. She currently remains intubated on mechanical ventilator, not requiring sedation. After speaking with the medical team, the patient's family has requested the patient be withdrawn from artificial life support stating they want to allow her to pass peacefully and naturally because "That's what she'd want." Signed exhibits have been placed on the patient's chart and comfort medications have been ordered. Palliative care is at bedside with the patient's large extended family providing ongoing support and EOL education. . . Advance Directives Living Will: Never completed Health Care Surrogate: Never completed Durable Power of Manufacturing Group Leader: Never completed Advance Directive Specifics Documented care wishes: No documented care wishes were completed per report . Significant change in goals: Withdrawing artificial life support today; signed exhibits have been placed on patient's chart. . Objective Vital Signs Date Time Temp Pulse Resp B/P Pulse Ox O2 Delivery O2 Flow Rate FiO2 11/07/16 10:00 111 11/07/16 08:00 40 11/07/16 08:00 98.7 105 17 118/59 100 11/07/16 08:00 105 11/07/16 07:21 100 40 11/07/16 07:00 100 Mechanical Ventilator 40 11/07/16 06:00 107 11/07/16 04:25 100 40 11/07/16 04:00 100.8 142 19 106/67 100 11/07/16 04:00 40 11/07/16 04:00 142 11/07/16 02:00 137 11/07/16 00:33 100 40 11/07/16 00:00 98 11/07/16 00:00 40 11/07/16 00:00 99.8 98 17 130/62 100 11/06/16 22:00 115 11/06/16 20:00 40 11/06/16 20:00 118 11/06/16 20:00 99.4 118 26 141/65 97 11/06/16 19:41 98 40 11/06/16 19:00 97 Mechanical Ventilator 40 11/06/16 18:00 115 11/06/16 16:00 40 11/06/16 16:00 115 11/06/16 16:00 99.0 115 19 140/64 100 11/06/16 15:49 100 40 11/06/16 14:00 118 11/06/16 12:52 99 40 11/06/16 12:00 100.0 114 17 135/65 100 11/06/16 12:00 40 11/06/16 12:00 114 Intake & Output 11/07/16 11/07/16 07:00 19:00 Intake Total 1485 ml Output Total 550 ml Balance 935 ml Intake IV Total 1485 ml Output Urine Total 550 ml Gastric Drainage Total 0 ml # Bowel Movements 0 . Physical Exam CONSTITUTIONAL/GENERAL: This is an elderly female patient, orally intubated and mechanically ventilated. TUBES/LINES/DRAINS: PIV x2, CVL, ETT, OG SKIN: Ecchymoses on upper extremities; bilateral upper extremities are swollen Skin temperature appropriate. Not diaphoretic. HEAD: Atraumatic. Normocephalic. EYES: Pupils slightly unequal. No scleral icterus. No injection or drainage. Fundi not examined. ENT: Unable to assess hearing secondary to clinical condition. Nose without bleeding or purulent drainage. NECK: Trachea midline. CARDIOVASCULAR: Regular rate and rhythm without murmurs, gallops, or rubs. No JVD. Peripheral pulses symmetric. RESPIRATORY/CHEST: Symmetric, unlabored respirations. Clear to auscultation. Breath sounds equal bilaterally. No wheezes, rales, or rhonchi. GASTROINTESTINAL: Abdomen soft, nondistended. Bowel sounds hypoactive. GENITOURINARY: Without palpable bladder distension. Em catheter in place draining cloudy willard urine MUSCULOSKELETAL: Extremities without clubbing or cyanosis. Bilateral upper extremities are swollen . No mottling or clubbing. NEUROLOGICAL: Withdraws to noxious stimuli centrally and on all extremities. Withdraw is weaker in the RUE compared to LUE. Unresponsive to all other stimuli , not requiring sedation on mechanical ventilator. PSYCHIATRIC: Unable to assess secondary to clinical condition. . Diagnostic Tests Laboratory Laboratory Tests Test 11/05/16 11/05/16 16:10 17:20 White Blood Count 10.9 TH/MM3 (4.0-11.0) Red Blood Count 3.78 MIL/MM3 (4.00-5.30) Hemoglobin 11.7 GM/DL (11.6-15.3) Hematocrit 34.4 % (35.0-46.0) Mean Corpuscular Volume 91.0 FL (80.0-100.0) Mean Corpuscular Hemoglobin 30.8 PG (27.0-34.0) Mean Corpuscular Hemoglobin 33.9 % Concent (32.0-36.0) Red Cell Distribution Width 14.0 % (11.6-17.2) Platelet Count 372 TH/MM3 (150-450) Mean Platelet Volume 6.5 FL (7.0-11.0) Neutrophils (%) (Auto) 82.2 % (16.0-70.0) Lymphocytes (%) (Auto) 10.3 % (9.0-44.0) Monocytes (%) (Auto) 6.7 % (0.0-8.0) Eosinophils (%) (Auto) 0.4 % (0.0-4.0) Basophils (%) (Auto) 0.4 % (0.0-2.0) Neutrophils # (Auto) 9.0 TH/MM3 (1.8-7.7) Lymphocytes # (Auto) 1.1 TH/MM3 (1.0-4.8) Monocytes # (Auto) 0.7 TH/MM3 (0-0.9) Eosinophils # (Auto) 0.0 TH/MM3 (0-0.4) Basophils # (Auto) 0.0 TH/MM3 (0-0.2) CBC Comment DIFF FINAL Differential Comment Prothrombin Time 11.1 SEC (9.8-11.6) Prothromb Time International 1.0 RATIO Ratio Activated Partial 29.4 SEC Thromboplast Time (24.3-30.1) Urine Color LIGHT-YELLOW (YELLW/STRAW) Urine Turbidity HAZY (CLEAR) Urine pH 6.0 (5.0-8.5) Urine Specific [place] 1.010 (1.002-1.035) Urine Protein TRACE mg/dL (NEG-TRACE) Urine Glucose (UA) NEG mg/dL (NEG) Urine Ketones NEG mg/dL (NEG) Urine Occult Blood SMALL (NEG) Urine Nitrite POS (NEG) Urine Bilirubin NEG (NEG) Urine Urobilinogen LESS THAN 2.0 MG/DL (LESS THAN 2.0) Urine Leukocyte Esterase LARGE (NEG) Urine RBC 6 /hpf (0-3) Urine WBC 181 /hpf (0-5) Urine WBC Clumps MANY (NONE) Urine Squamous Epithelial 2 /hpf (0-5) Cells Urine Bacteria MANY /hpf (NONE) Urine Hyaline Casts 2 /lpf (RARE) Urine Mucus FEW /lpf (OCC) Microscopic Urinalysis Comment CATH-CULTURE IND Sodium Level 128 MEQ/L (136-145) Potassium Level 4.6 MEQ/L (3.5-5.1) Chloride Level 94 MEQ/L (98-107) Carbon Dioxide Level 23.7 MEQ/L (21.0-32.0) Anion Gap 10 MEQ/L (5-15) Blood Urea Nitrogen 18 MG/DL (7-18) Creatinine 0.69 MG/DL (0.50-1.00) Estimat Glomerular Filtration 81 ML/MIN (>89) Rate Random Glucose 163 MG/DL (74-106) Calcium Level 8.7 MG/DL (8.5-10.1) Urine Opiates Screen NEG (NEG) Urine Barbiturates Screen NEG (NEG) Urine Amphetamines Screen NEG (NEG) Urine Benzodiazepines Screen NEG (NEG) Urine Cocaine Screen NEG (NEG) Urine Cannabinoids Screen NEG (NEG) Ethyl Alcohol Level LESS THAN 3 MG/DL (0-5) Blood Gas Puncture Site LT RADIAL Blood Gas Patient Temperature 98.6 Blood Gas HCO3 20 mmol/L (22-26) Blood Gas Base Excess -4.1 mmol/L (-2-2) Blood Gas Oxygen Saturation 98 % (90-100) Arterial Blood pH 7.37 (7.380-7.420) Arterial Blood Partial 36 mmHg (38-42) Pressure CO2 Arterial Blood Partial 273 mmHG Pressure O2 (61-120) Arterial Blood Oxygen Content 15.2 Vol % (12.0-20.0) Arterial Blood 0.7 % (0-4) Carboxyhemoglobin Arterial Blood Methemoglobin 0.9 % (0-2) Blood Gas Hemoglobin 10.6 G/DL (12.0-16.0) Oxygen Delivery Device VENTILATOR Blood Gas Ventilator Setting AC14/500/5PEEP Blood Gas Inspired Oxygen 50 % . Result Diagram: 11/05/16 1610 11/05/16 1610 Microbiology Microbiology Date/Time Procedure Status Source Growth 11/05/16 16:10 Urine Culture - Final Complete Urine Catheterized Urine Klebsiella Pneumoniae . Imaging Last [address] 11/05/16 0000 Signed Impressions: Service Date/Time: Saturday, November 05, 2016 16:59 - CONCLUSION: Large, greater than 10 cm, hemorrhage involving left frontal, parietal, and occipital lobes causing greater than 2 cm midline shift towards the right and some mass effect in the mesencephalon, but no overt transtentorial herniation. The findings were called to Dr. Lobo. Mike Iqbal MD Chest X-Ray 11/05/16 0000 Signed Impressions: Service Date/Time: Saturday, November 05, 2016 21:43 - CONCLUSION: Right subclavian catheter in good position. No evidence of pneumothorax. Mike Iqbal MD Chest X-Ray 11/05/16 0000 Signed Impressions: Service Date/Time: Saturday, November 05, 2016 16:16 - CONCLUSION: 1. No acute cardiopulmonary disease. 2. Endotracheal tube 2 cm above the doc. 3. Degenerative changes and scoliosis of the thoracolumbar spine. Madi Bui MD . Procedures 11/05/2016: Intubation 11/05/2016: Right subclavian CVL 11/05/2016: OGT . Assessment and Plan Disease Oriented Problem List: (1) Intracranial hemorrhage (2) Required emergent intubation (3) Unresponsive state (4) HTN (hypertension) (5) GERD (gastroesophageal reflux disease) (6) Hyperlipidemia Symptom Scale: (1) Debility, unspecified (2) Pain (3) Encephalopathy Pertinent Non-Medical Issues Psychosocial: Patient is originally from [place]. Patient's 20+ years ago per family report. The patient has 3 adult children ( 2 sons and 1 daughter) who live locally. She currently lives with 1 son in [place]. 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 Spiritual: Anabaptist jennifer Legal: Per [place] statutes, in the absence of written advanced directives healthcare proxy decision-making falls to the patient's 3 adult children. Ethical issues impacting care: No known ethical issues impacting care. Important Contacts Joseph Willett, son: rBian Willett, son: [phone] Francheska Rg, daughter: [phone] . Prognosis Mr. Willett is an 86 yo female who was brought to [facility] after being unresponsive by her son. CT scan of the brain performed emergently shows a catastrophic left hemisphere intracerebral hemorrhage measuring over 10 cm in greatest length and over 2 cm of [id number] midline shift. Patient currently remains intubated without the need for station or paralysis status post devastating neurological injury. Prognosis poor. . Code Status: No Code Plan * NO CODE * Per [place] statutes, in the absence of written advanced directives healthcare proxy decision-making falls to the patient's 3 adult children. * Goals: Comfort focused goals * FAMILY PLANS TO WITHDRAWAL ARTIFICIAL LIFE SUPPORT TODAY 11/07/2016 * Discussed with Dr. Rachel, Dr. Santos and patient's nurse (Mariam). * Mixing Operator at bedside, providing spiritual support. * CT of the head showed a massive left-sided frontoparietal hemorrhage greater than 10 cm. She also has 2 cm of [id number] midline shift and some subfalcine herniation. * Patient is critically ill with a devastating neurological injury. Neurosurgery spoke with the patient's family and recommendations were made to consider transitioning to comfort focused care; medical team is in agreement. * Signed exhibits have been placed on patient's chart; comfort medications have been ordered. * Palliative care will continue to follow this patient throughout her hospitalization to establish trust, assist with symptom management and clarification of medical treatment goals. . . Attestation To help prompt me to consider important information that might be impacting today's encounter and assessment, information from prior notes written by myself or my colleagues may have been "brought forward" into today's note. My signature on this note, however, is an attestation that I personally performed the exam, history, and/or decision-making noted today, and, unless otherwise indicated, the interactions with patient, family, and staff as well as the review of records all occurred today. I also attest that the listed assessment and stated plan reflect my best clinical judgment today based on the combination of historical information, prior notes, and today's exam/ interactions. When time spent is documented, it refers only to time spent today by the signer, or if indicated, combined time spent today by collaborating physician/nurse practitioner. . Norma Liu Nov 07, 2016 11:53
[2016-11-07] MEDS: LORazepam 2 MG/ML VIAL IV SCH ×3 (12:09→20:21)
[2016-11-07] MEDS: MORPHINE SULFATE 4 MG/ML INJ IV SCH ×3 (12:09→20:21)
[2016-11-08] MEDS: LORazepam 2 MG/ML VIAL IV SCH ×4 (00:16→12:05)
[2016-11-08] MEDS: MORPHINE SULFATE 4 MG/ML INJ IV SCH ×4 (00:16→12:05)
[2016-11-08 08:00] VITALS: BP 84/49; PULSE 100; RESP 13; TEMP 99.5; O2SAT 94
--- NOTE | 2016-11-08 10:37 | HHI.HCPN ---
Reason for visit a. To assist with evaluation and management of symptoms including: Pain, secretions, dyspnea, anxiety b. To assist medical decision maker(s) with: better understanding of current medical conditions; weighing benefits/burdens of medical treatment options; making medical treatment decisions. . Subjective/Interval History . Ms. Willett is an 86 year old female with a past medical history that includes osteoarthritis, GERD, hypertension, hyperlipidemia. She was brought to [facility] ED on 11/05/2016 for evaluation after she was found unresponsive by her son. CT of the head showed a massive left-sided frontoparietal hemorrhage greater than 10 cm; 2 cm of [id number] midline shift and some subfalcine herniation. Status post compassionate withdrawal of artificial life support on . Patient is unresponsive with a PPS of 10%. She appears comfortable, showing no nonverbal signs or symptoms of distress. Comfort medications are in place; patient receiving morphine 8 mg IV and lorazepam 4 mg IV q4 hours around-the- clock. PRN medications are also available. Respirations are unlabored, no accessory muscle use, no excessive secretions. Pulse: 100, respirations 13, BP 84/49, oxygen saturation 94% on room air, oral temperature 99.5 Spoke with patient's 3 children (Joseph, Brian, Francheska) who are requesting hospice services for symptom management and end-of-life care; requesting transfer to [facility]. Order for hospice consult pending. Discussed with Dr. Rachel , bedside nurse (Mariam) and case management (Eloise). Updated hospice admission nurse (Tania) and hospice intake (Sofiya) on this referral. . Advance Directives Living Will: Never completed Health Care Surrogate: Never completed Durable Power of Veterinary Inspector: Never completed Advance Directive Specifics Documented care wishes: No documented care wishes were completed per report . Significant change in goals: Family requesting hospice services and transfer to hospice care Center for symptom management and end-of-life care. . Objective Vital Signs Date Time Temp Pulse Resp B/P Pulse Ox O2 Delivery O2 Flow Rate FiO2 11/07/16 20:26 11 11/07/16 19:15 100.1 150 9 80/50 94 11/07/16 19:00 94 Room Air 11/07/16 12:00 97.8 147 12 133/86 95 Intake & Output 11/08/16 11/08/16 07:00 19:00 Output Total 275 ml Balance -275 ml Output Urine Total 275 ml # Bowel Movements 0 . Physical Exam CONSTITUTIONAL/GENERAL: This is an elderly female patient, orally intubated and mechanically ventilated. TUBES/LINES/DRAINS: PIV x2, CVL, ETT, OG SKIN: Ecchymoses on upper extremities; bilateral upper extremities are swollen Skin temperature appropriate. Not diaphoretic. HEAD: Atraumatic. Normocephalic. EYES: Pupils slightly unequal. No scleral icterus. No injection or drainage. Fundi not examined. ENT: Unable to assess hearing secondary to clinical condition. Nose without bleeding or purulent drainage. Mucus membranes dry, pink. NECK: Trachea midline. CARDIOVASCULAR: Tachycardia. No murmurs, gallops, or rubs. No JVD. Peripheral pulses symmetric. RESPIRATORY/CHEST: Respirations 815/m. Breath sounds diminished bilaterally. No wheezes, rales, or rhonchi. No accessory muscle use, no excessive secretions GASTROINTESTINAL: Abdomen soft, nondistended. GENITOURINARY: Without palpable bladder distension. MUSCULOSKELETAL: Extremities without clubbing or cyanosis. Bilateral upper extremities are swollen. Bilateral lower extremities are cool to touch and pale , no mottling noted. NEUROLOGICAL: Unresponsive; PPS 10% PSYCHIATRIC: Unable to assess secondary to clinical condition. . Diagnostic Tests Laboratory Laboratory Tests Test 11/05/16 11/05/16 16:10 17:20 White Blood Count 10.9 TH/MM3 (4.0-11.0) Red Blood Count 3.78 MIL/MM3 (4.00-5.30) Hemoglobin 11.7 GM/DL (11.6-15.3) Hematocrit 34.4 % (35.0-46.0) Mean Corpuscular Volume 91.0 FL (80.0-100.0) Mean Corpuscular Hemoglobin 30.8 PG (27.0-34.0) Mean Corpuscular Hemoglobin 33.9 % Concent (32.0-36.0) Red Cell Distribution Width 14.0 % (11.6-17.2) Platelet Count 372 TH/MM3 (150-450) Mean Platelet Volume 6.5 FL (7.0-11.0) Neutrophils (%) (Auto) 82.2 % (16.0-70.0) Lymphocytes (%) (Auto) 10.3 % (9.0-44.0) Monocytes (%) (Auto) 6.7 % (0.0-8.0) Eosinophils (%) (Auto) 0.4 % (0.0-4.0) Basophils (%) (Auto) 0.4 % (0.0-2.0) Neutrophils # (Auto) 9.0 TH/MM3 (1.8-7.7) Lymphocytes # (Auto) 1.1 TH/MM3 (1.0-4.8) Monocytes # (Auto) 0.7 TH/MM3 (0-0.9) Eosinophils # (Auto) 0.0 TH/MM3 (0-0.4) Basophils # (Auto) 0.0 TH/MM3 (0-0.2) CBC Comment DIFF FINAL Differential Comment Prothrombin Time 11.1 SEC (9.8-11.6) Prothromb Time International 1.0 RATIO Ratio Activated Partial 29.4 SEC Thromboplast Time (24.3-30.1) Urine Color LIGHT-YELLOW (YELLW/STRAW) Urine Turbidity HAZY (CLEAR) Urine pH 6.0 (5.0-8.5) Urine Specific [place] 1.010 (1.002-1.035) Urine Protein TRACE mg/dL (NEG-TRACE) Urine Glucose (UA) NEG mg/dL (NEG) Urine Ketones NEG mg/dL (NEG) Urine Occult Blood SMALL (NEG) Urine Nitrite POS (NEG) Urine Bilirubin NEG (NEG) Urine Urobilinogen LESS THAN 2.0 MG/DL (LESS THAN 2.0) Urine Leukocyte Esterase LARGE (NEG) Urine RBC 6 /hpf (0-3) Urine WBC 181 /hpf (0-5) Urine WBC Clumps MANY (NONE) Urine Squamous Epithelial 2 /hpf (0-5) Cells Urine Bacteria MANY /hpf (NONE) Urine Hyaline Casts 2 /lpf (RARE) Urine Mucus FEW /lpf (OCC) Microscopic Urinalysis Comment CATH-CULTURE IND Sodium Level 128 MEQ/L (136-145) Potassium Level 4.6 MEQ/L (3.5-5.1) Chloride Level 94 MEQ/L (98-107) Carbon Dioxide Level 23.7 MEQ/L (21.0-32.0) Anion Gap 10 MEQ/L (5-15) Blood Urea Nitrogen 18 MG/DL (7-18) Creatinine 0.69 MG/DL (0.50-1.00) Estimat Glomerular Filtration 81 ML/MIN (>89) Rate Random Glucose 163 MG/DL (74-106) Calcium Level 8.7 MG/DL (8.5-10.1) Urine Opiates Screen NEG (NEG) Urine Barbiturates Screen NEG (NEG) Urine Amphetamines Screen NEG (NEG) Urine Benzodiazepines Screen NEG (NEG) Urine Cocaine Screen NEG (NEG) Urine Cannabinoids Screen NEG (NEG) Ethyl Alcohol Level LESS THAN 3 MG/DL (0-5) Blood Gas Puncture Site LT RADIAL Blood Gas Patient Temperature 98.6 Blood Gas HCO3 20 mmol/L (22-26) Blood Gas Base Excess -4.1 mmol/L (-2-2) Blood Gas Oxygen Saturation 98 % (90-100) Arterial Blood pH 7.37 (7.380-7.420) Arterial Blood Partial 36 mmHg (38-42) Pressure CO2 Arterial Blood Partial 273 mmHG Pressure O2 (61-120) Arterial Blood Oxygen Content 15.2 Vol % (12.0-20.0) Arterial Blood 0.7 % (0-4) Carboxyhemoglobin Arterial Blood Methemoglobin 0.9 % (0-2) Blood Gas Hemoglobin 10.6 G/DL (12.0-16.0) Oxygen Delivery Device VENTILATOR Blood Gas Ventilator Setting AC14/500/5PEEP Blood Gas Inspired Oxygen 50 % . Result Diagram: 11/05/16 1610 11/05/16 1610 Microbiology Microbiology Date/Time Procedure Status Source Growth 11/05/16 16:10 Urine Culture - Final Complete Urine Catheterized Urine Klebsiella Pneumoniae . Imaging . Procedures 11/05/2016: Intubation 11/05/2016: Right subclavian CVL 11/05/2016: OGT . Assessment and Plan Disease Oriented Problem List: (1) Intracranial hemorrhage (2) Required emergent intubation (3) Unresponsive state (4) HTN (hypertension) (5) GERD (gastroesophageal reflux disease) (6) Hyperlipidemia Symptom Scale: (1) Debility, unspecified (2) Pain (3) Encephalopathy Pertinent Non-Medical Issues Psychosocial: Patient is originally from [place]. Patient's 20+ years ago per family report. The patient has 3 adult children ( 2 sons and 1 daughter) who live locally. She currently lives with 1 son in [place]. 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 Spiritual: Anabaptism jennifer Legal: Per [place] statutes, in the absence of written advanced directives healthcare proxy decision-making falls to the patient's 3 adult children. Ethical issues impacting care: No known ethical issues impacting care. Important Contacts Joseph Willett, son: [phone] Brian Willett, son: [phone] Francheska Rg, daughter: [phone] . Prognosis Mr. Willett is an 86 yo female who was brought to [facility] after being unresponsive by her son. CT scan of the brain performed emergently shows a catastrophic left hemisphere intracerebral hemorrhage measuring over 10 cm in greatest length and over 2 cm of [id number] midline shift. Patient currently remains intubated without the need for station or paralysis status post devastating neurological injury. Prognosis poor. . Code Status: No Code Plan * NO CODE * Per [place] statutes, in the absence of written advanced directives healthcare proxy decision-making falls to the patient's 3 adult children. * Goals: Family requesting hospice services for symptom management and end-of- life care; requesting transfer to [facility]. * Discussed patient with Dr. Rachel, bedside nurse (Mariam) and case management (Eloise). * Order placed for hospice consult. Updated hospice admission nurse (Tania) and hospice intake (Sofiya) on this referral. * CT of the head showed a massive left-sided frontoparietal hemorrhage greater than 10 cm; 2 cm of [id number] midline shift and some subfalcine herniation. Patient is critically ill with a devastating neurological injury. Neurosurgery spoke with the patient's family and recommendations were made to consider transitioning to comfort focused care; medical team is in agreement.Status post compassionate withdrawal of artificial life support on 11/07/2016. * 11/07/2016: Signed exhibits were placed on patient's chart; comfort medications have been ordered. * Contact information: = Joseph Willett, son: [phone] = Brian Willett, son: [phone] = Francheska Rg, daughter: [phone] * Palliative care will continue to follow this patient throughout her hospitalization to establish trust, assist with symptom management and clarification of medical treatment goals. . . Attestation To help prompt me to consider important information that might be impacting today's encounter and assessment, information from prior notes written by myself or my colleagues may have been "brought forward" into today's note. My signature on this note, however, is an attestation that I personally performed the exam, history, and/or decision-making noted today, and, unless otherwise indicated, the interactions with patient, family, and staff as well as the review of records all occurred today. I also attest that the listed assessment and stated plan reflect my best clinical judgment today based on the combination of historical information, prior notes, and today's exam/ interactions. When time spent is documented, it refers only to time spent today by the signer, or if indicated, combined time spent today by collaborating physician/nurse practitioner. . Norma Liu Nov 08, 2016 10:37
--- NOTE | 2016-11-08 17:04 | HHI.DS ---
Discharge Summary Admission Date Nov 05, 2016 at 17:55 Discharge Date: Nov 08, 2016 Admitting Diagnosis massive ICH Procedures CT Scan Head - Massive left cerebral hemorrhage Brief History 86-year-old unfortunate female was found unresponsive at her home, last being seen in her normal state of health eight hours previously. She was brought to [facility] and intubated here without the need of sedation or paralysis. CT scan of the brain performed emergently shows a catastrophic left hemisphere intracerebral hemorrhage measuring over 10 cm in greatest length and over 2 cm of [id number]-[id number] midline shift. CBC/BMP: 11/05/16 1610 11/05/16 1610 Significant Findings Laboratory Tests Test 11/05/16 17:20 Blood Gas HCO3 20 mmol/L (22-26) Blood Gas Base Excess -4.1 mmol/L (-2-2) Arterial Blood pH 7.37 (7.380-7.420) Arterial Blood Partial 36 mmHg (38-42) Pressure CO2 Arterial Blood Partial 273 mmHG Pressure O2 (61-120) Blood Gas Hemoglobin 10.6 G/DL (12.0-16.0) PE at Discharge Somnolent. Breathing comfortably. Well perfused. Transfer Summary She presented with acute massive left intraparenchymal blee and was transitioned to hospice service after 36 hours. Hospital Course 86-year-old unfortunate female was found unresponsive at her home, last being seen in her normal state of health eight hours previously. She was brought to [facility] and intubated here without the need of sedation or paralysis. CT scan of the brain performed emergently shows a catastrophic left hemisphere intracerebral hemorrhage measuring over 10 cm in greatest length and over 2 cm of [id number] midline shift. 11/06: Continued neurological deterioration after large intracranial bleed. Now ventilator dependent, withdraws only, otherwise unresponsive. 11/07: Plan for withdrawal of artificial support today. Agree. Neurological injury is devastating, not survivable. Pt Condition on Discharge: Deteriorating Ck Dunaway MD Nov 08, 2016 17:04
== END 2016-11-08 16:04 | disposition hospice, inpatient (51) | DRG 64 ==
LOC: NEPC 15:54 → NEDA 17:55 → N03B 20:06
PROVIDERS: ADMIT Internal Medicine Critical Care Medicine; ATTEND Internal Medicine Critical Care Medicine
PROC: 0BH17EZ Insertion of Endotracheal Airway into Trachea, Via Natural or Artificial Opening (ICD-10-PCS; principal; 2016-11-05)
PROC: 02HV33Z Insertion of Infusion Device into Superior Vena Cava, Percutaneous Approach (ICD-10-PCS; 2016-11-05)
PROC: 5A1945Z Respiratory Ventilation, 24-96 Consecutive Hours (ICD-10-PCS; 2016-11-06)
DX: I61.9 Nontraumatic intracerebral hemorrhage, unspecified (principal); J96.90 Respiratory failure, unspecified, unspecified whether with hypoxia or hypercapnia; Z99.11 Dependence on respirator [ventilator] status; G93.40 Encephalopathy, unspecified; E87.1 Hypo-osmolality and hyponatremia; I10 Essential (primary) hypertension; K21.9 Gastro-esophageal reflux disease without esophagitis; M19.90 Unspecified osteoarthritis, unspecified site; Z79.82 Long term (current) use of aspirin; Z66 Do not resuscitate; Z51.5 Encounter for palliative care; K44.9 Diaphragmatic hernia without obstruction or gangrene; E78.5 Hyperlipidemia, unspecified
CPT/HCPCS: 31500; 36556; 36600; 51702; 70450; 71010; 80048; 80307; 81001; 82805; 85025; 85610; 85730; 87086; 94002; 94003; 96365; C9113; J0330; J0360; J1980; J2060; J2270; J7030